=== PATIENT | male | born 1960 | race Caucasian/White ===

== ENCOUNTER → 2018-07-10 | Outpatient (CLI) | payer BC ==
--- NOTE | 2018-07-10 13:46 | PCVCIMAG ---
APPROVED REPORT Indications Stenosis Risk Factors Hyperlipidemia Current Smoker Doppler Spectral Velocity Analysis PSV / EDVPSV / EDV ECA (R) 81 / 6 cm/sECA (L) 93 / 9 cm/s dICA (R) 52 / 17 cm/sdICA (L) 46 / 16 cm/s Jazmin (R) 48 / 17 cm/smICA (L) 59 / 18 cm/s pICA (R) 59 / 12 cm/spICA (L) 58 / 13 cm/s Bulb (R) 48 / 14 cm/sBulb (L) 75 / 15 cm/s dCCA (R) 86 / 13 cm/sdCCA (L) 83 / 14 cm/s mCCA (R) 89 / 14 cm/smCCA (L) 105 / 14 cm/s Vert (R) 47 / 13 cm/sVert (L) 61 / 18 cm/s ICA/CCA 0.69ICA/CCA 0.71 Basic Measurements Blood Pressure: Pulses: Right Left RightLeft Brachial(Sitting) 126/25mfIb185/78mmHgTemporal Real Time B-Mode Imaging Vert. (R)AntegradeVert. (L)Antegrade Findings The right carotid bulb has mild calcified plaque. The right proximal internal carotid artery shows <20% stenosis. The right common carotid artery shows no significant stenosis. The right external carotid artery shows no significant stenosis. The left carotid bulb has moderate plaque. The left proximal internal carotid artery shows <40% stenosis. The left common carotid artery shows no significant stenosis. The left external carotid artery shows no significant stenosis. Conclusion 1. Right internal carotid artey stenosis (<20%) 2. Left internal carotid artery stenosis (<40%) 3. Antegrade vertebral flow
== END | disposition home or self-care (01) ==
LOC: PCVCIMAG 13:14
PROVIDERS: ATTEND Internal Medicine
DX: I65.23 Occlusion and stenosis of bilateral carotid arteries (principal); E78.5 Hyperlipidemia, unspecified; F17.210 Nicotine dependence, cigarettes, uncomplicated
CPT/HCPCS: 93880